=== PATIENT | female | born 1975 | race Caucasian/White ===

== ENCOUNTER → 2016-10-14 | Outpatient (CLI) | payer OTHER ==
--- NOTE | 2016-10-14 16:54 | REP ---
Left knee five views: Comparisons 06/24/2012. Mineralization is normal. There is no fracture or dislocation. There is no effusion. There are no calcifications or foreign bodies. There is minimal spurring at the medial joint margin at the patellofemoral joint margin compatible with minimal osteoarthritis. This has minimally progressed. Signed by Nikhil Fuentes MD 10/14/2016 04:46 P
== END ==
LOC: M RAD 14:45
PROVIDERS: ATTEND Physician Assistant Medical
DX: M17.12 Unilateral primary osteoarthritis, left knee (principal); M25.462 Effusion, left knee

== ENCOUNTER 2016-10-29 06:49 | Emergency (ER) | payer OTHER ==
[2016-10-29] MEDS ORDERED: SILVER SULFADIAZINE 1% CR 50 GM JAR As Ordered ONE (07:47)
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
== END 2016-10-29 08:05 | disposition home or self-care (01) ==
LOC: M ED 06:49
DX: T22.111A Burn of first degree of right forearm, initial encounter (principal); T54.1X1A Toxic effect of other corrosive organic compounds, accidental (unintentional), initial encounter; X58.XXXA Exposure to other specified factors, initial encounter; Y92.89 Other specified places as the place of occurrence of the external cause; Y93.89 Activity, other specified; Y99.0 Civilian activity done for income or pay; F32.9 Major depressive disorder, single episode, unspecified; F41.9 Anxiety disorder, unspecified; E03.9 Hypothyroidism, unspecified; Z79.899 Other long term (current) drug therapy

== ENCOUNTER 2016-11-03 17:09 | Emergency (ER) | payer OTHER ==
[2016-11-03] MEDS ORDERED: cloNIDine 0.2 MG TAB As Ordered ONE (19:10)
--- NOTE | 2016-11-03 21:20 | EDDOCDS ---
Physician Documentation [facility] Name: Bev Berg Age: 41 yrs Sex: Female : 1975 Arrival Date: 11/03/2016 Time: 17:09 Bed 14 Private MD: CRISTIAN GONSALEZ M Disposition: 11/03/16 21:10 Discharged to Home/Self Care. Impression: Encounter for examination of blood pressure with abnormal findings, Problems related to social environment. - Condition is Stable. - Medication Reconciliation, Local Pharmacy Hours form. - Follow up: Private Physician; When: Call to arrange an appointment; Reason: Recheck today's complaints. Follow up: Referral list, As provided by [facility]; When: Call to arrange an appointment; Reason: Recheck today's complaints. - Problem is an ongoing problem. - Symptoms have improved. Historical: - Allergies: No known drug Allergies; - Home Meds: 1. BuSpar 15 mg Oral tab 1 tab three times a day (Last dose: 11/02/2016) 2. Effexor 225mg Oral tab daily (Last dose: 11/02/2016) 3. levothyroxine 75 mcg Oral cap 1 cap once daily (Last dose: 11/03/2016 09:00) 4. hydrocodone-acetaminophen 5-325 mg Oral tab 1 tab every 4-6 hours as needed ran out last PM (Last dose: 11/02/2016) 5. ibuprofen 800 mg Oral tab 1 tab every 8 hours as needed (Last dose: 11/03/2016 11:00) - PMHx: Anxiety; Depression; Hypothyroidism; - PSHx: none; - Social history: Smoking status: Patient states was never smoker of tobacco. No barriers to communication noted, The patient speaks fluent Turkish. - Family history: Not pertinent. - : The pt / caregiver states he / she is not on anticoagulants. Home medication list is obtained from the patient. - Exposure Risk Screening:: None identified. 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 Vital Signs: 17:11 BP 212 / 103; Pulse 94; Resp 16; Temp 97.7(O); Pulse Ox 100% on R/A; Weight 127.01 kg / lr2 280.01 lbs (R); Height 5 ft. 2 in. (157.48 cm) (R); Pain 5/10; 17:18 BP 196 / 110 RA Sitting (man/lg); lr2 17:46 BP 193 / 93 RA (man/); hs1 18:30 BP 204 / 88 (auto/); mgs 18:31 Pulse 92 MON; Pulse Ox 100% ; mgs 18:50 BP 219 / 94 (auto/); mgs 18:50 Pulse 86 MON; Pulse Ox 98% ; mgs 19:10 BP 170 / 86 (auto/); mgs 19:10 Pulse 90 MON; Pulse Ox 99% ; mgs 19:30 BP 182 / 92 (auto/); mgs 19:30 Pulse 86 MON; Pulse Ox 99% ; mgs 19:50 BP 193 / 105 (auto/); mgs 19:50 Pulse 86 MON; Pulse Ox 99% ; mgs 20:10 BP 169 / 74 (auto/); mgs 20:10 Pulse 88 MON; Pulse Ox 95% ; mgs 20:30 BP 163 / 77 (auto/); mgs 20:30 Pulse 86 MON; Pulse Ox 97% ; mgs 20:50 BP 161 / 77 (auto/); mgs 20:50 Pulse 86 MON; Pulse Ox 95% ; mgs 21:13 BP 150 / 78; Pulse 87; Resp 18; Temp 98.8(O); Pulse Ox 98% on R/A; shona 17:11 Body Mass Index 51.21 (127.01 kg, 157.48 cm) lr2 MDM: 19:07 cloNIDine 0.2 mg PO once ordered. cs11 20:06 Consult PFS/PSA/Pile Driver ordered. cs11 20:59 Consult PFS/PSA/Pile Driver complete. ms 21:05 Financial registration complete. zo 21:08 [facility] Payment Agreement was scanned into [place] and attached to record. zo Administered Medications: 19:12 Drug: cloNIDine 0.2 mg [clonidine HCl 0.2 mg tablet (1 tabs)] Route: PO; mgs Signatures: Ivonne Cervantes RN RN kpj Charisma Lepe, PSA PSA ms Storm Linares Craig, DO DO cs11 Altaf Kern RN RN mgs The chart was reviewed and I authenticate all verbal orders and agree with the evaluation and treatment provided.Attachments: 21:08 [facility] Payment Agreement zo MTDD
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
--- NOTE | 2016-11-05 22:20 | EDDOCDS ---
Physician Documentation [facility] Name: Bev Berg Age: 41 yrs Sex: Female : 1975 Arrival Date: 11/03/2016 Time: 17:09 Bed 14 Private MD: CRISTIAN GONSALEZ M Disposition: 11/03/16 21:10 Discharged to Home/Self Care. Impression: Encounter for examination of blood pressure with abnormal findings, Problems related to social environment. - Condition is Stable. - Medication Reconciliation, Local Pharmacy Hours form. - Follow up: Private Physician; When: Call to arrange an appointment; Reason: Recheck today's complaints. Follow up: Referral list, As provided by PFS; When: Call to arrange an appointment; Reason: Recheck today's complaints. - Problem is an ongoing problem. - Symptoms have improved. Historical: - Allergies: No known drug Allergies; - Home Meds: 1. BuSpar 15 mg Oral tab 1 tab three times a day (Last dose: 11/02/2016) 2. Effexor 225mg Oral tab daily (Last dose: 11/02/2016) 3. levothyroxine 75 mcg Oral cap 1 cap once daily (Last dose: 11/03/2016 09:00) 4. hydrocodone-acetaminophen 5-325 mg Oral tab 1 tab every 4-6 hours as needed ran out last PM (Last dose: 11/02/2016) 5. ibuprofen 800 mg Oral tab 1 tab every 8 hours as needed (Last dose: 11/03/2016 11:00) - PMHx: Anxiety; Depression; Hypothyroidism; - PSHx: none; - Social history: Smoking status: Patient states was never smoker of tobacco. No barriers to communication noted, The patient speaks fluent Bolivian. - Family history: Not pertinent. - : The pt / caregiver states he / she is not on anticoagulants. Home medication list is obtained from the patient. - Exposure Risk Screening:: None identified. 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 2 in. (157.48 cm) (R); Pain 5/10; 17:18 BP 196 / 110 RA Sitting (man/lg); lr2 17:46 BP 193 / 93 RA (man/); hs1 18:30 BP 204 / 88 (auto/); mgs 18:31 Pulse 92 MON; Pulse Ox 100% ; mgs 18:50 BP 219 / 94 (auto/); mgs 18:50 Pulse 86 MON; Pulse Ox 98% ; mgs 19:10 BP 170 / 86 (auto/); mgs 19:10 Pulse 90 MON; Pulse Ox 99% ; mgs 19:30 BP 182 / 92 (auto/); mgs 19:30 Pulse 86 MON; Pulse Ox 99% ; mgs 19:50 BP 193 / 105 (auto/); mgs 19:50 Pulse 86 MON; Pulse Ox 99% ; mgs 20:10 BP 169 / 74 (auto/); mgs 20:10 Pulse 88 MON; Pulse Ox 95% ; mgs 20:30 BP 163 / 77 (auto/); mgs 20:30 Pulse 86 MON; Pulse Ox 97% ; mgs 20:50 BP 161 / 77 (auto/); mgs 20:50 Pulse 86 MON; Pulse Ox 95% ; mgs 21:13 BP 150 / 78; Pulse 87; Resp 18; Temp 98.8(O); Pulse Ox 98% on R/A; shona 17:11 Body Mass Index 51.21 (127.01 kg, 157.48 cm) lr2 MDM: 19:07 cloNIDine 0.2 mg PO once ordered. cs11 20:06 Consult PFS/PSA/Strategic Communications Manager ordered. cs11 20:59 Consult PFS/PSA/Strategic Communications Manager complete. ms 21:05 Financial registration complete. zo 21:08 [facility] Payment Agreement was scanned into [employer] and attached to record. zo Administered Medications: 19:12 Drug: cloNIDine 0.2 mg [clonidine HCl 0.2 mg tablet (1 tabs)] Route: PO; mgs Signatures: Ivonne Cervantes RN RN kpj Charisma Lepe, PSA PSA ms Storm Linares Craig, DO DO cs11 Altaf Kern RN RN mgs The chart was reviewed and I authenticate all verbal orders and agree with the evaluation and treatment provided.Attachments: 21:08 [facility] Payment Agreement zo Chart Complete MTDD
--- NOTE | 2016-11-05 22:20 | EDDOCDS ---
Physician Documentation [facility] Name: Bev Berg Age: 41 yrs Sex: Female : 1975 Arrival Date: 11/03/2016 Time: 17:09 Bed 14 Private MD: CRISTIAN GONSALEZ M Disposition: 11/03/16 21:10 Discharged to Home/Self Care. Impression: Encounter for examination of blood pressure with abnormal findings, Problems related to social environment. - Condition is Stable. - Medication Reconciliation, Local Pharmacy Hours form. - Follow up: Private Physician; When: Call to arrange an appointment; Reason: Recheck today's complaints. Follow up: Referral list, As provided by PFS; When: Call to arrange an appointment; Reason: Recheck today's complaints. - Problem is an ongoing problem. - Symptoms have improved. Historical: - Allergies: No known drug Allergies; - Home Meds: 1. BuSpar 15 mg Oral tab 1 tab three times a day (Last dose: 11/02/2016) 2. Effexor 225mg Oral tab daily (Last dose: 11/02/2016) 3. levothyroxine 75 mcg Oral cap 1 cap once daily (Last dose: 11/03/2016 09:00) 4. hydrocodone-acetaminophen 5-325 mg Oral tab 1 tab every 4-6 hours as needed ran out last PM (Last dose: 11/02/2016) 5. ibuprofen 800 mg Oral tab 1 tab every 8 hours as needed (Last dose: 11/03/2016 11:00) - PMHx: Anxiety; Depression; Hypothyroidism; - PSHx: none; - Social history: Smoking status: Patient states was never smoker of tobacco. No barriers to communication noted, The patient speaks fluent Latvian. - Family history: Not pertinent. - : The pt / caregiver states he / she is not on anticoagulants. Home medication list is obtained from the patient. - Exposure Risk Screening:: None identified. 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 2 in. (157.48 cm) (R); Pain 5/10; 17:18 BP 196 / 110 RA Sitting (man/lg); lr2 17:46 BP 193 / 93 RA (man/); hs1 18:30 BP 204 / 88 (auto/); mgs 18:31 Pulse 92 MON; Pulse Ox 100% ; mgs 18:50 BP 219 / 94 (auto/); mgs 18:50 Pulse 86 MON; Pulse Ox 98% ; mgs 19:10 BP 170 / 86 (auto/); mgs 19:10 Pulse 90 MON; Pulse Ox 99% ; mgs 19:30 BP 182 / 92 (auto/); mgs 19:30 Pulse 86 MON; Pulse Ox 99% ; mgs 19:50 BP 193 / 105 (auto/); mgs 19:50 Pulse 86 MON; Pulse Ox 99% ; mgs 20:10 BP 169 / 74 (auto/); mgs 20:10 Pulse 88 MON; Pulse Ox 95% ; mgs 20:30 BP 163 / 77 (auto/); mgs 20:30 Pulse 86 MON; Pulse Ox 97% ; mgs 20:50 BP 161 / 77 (auto/); mgs 20:50 Pulse 86 MON; Pulse Ox 95% ; mgs 21:13 BP 150 / 78; Pulse 87; Resp 18; Temp 98.8(O); Pulse Ox 98% on R/A; shona 17:11 Body Mass Index 51.21 (127.01 kg, 157.48 cm) lr2 MDM: 19:07 cloNIDine 0.2 mg PO once ordered. cs11 20:06 Consult PFS/PSA/Carpet Winder ordered. cs11 20:59 Consult PFS/PSA/Carpet Winder complete. ms 21:05 Financial registration complete. zo 21:08 [facility] Payment Agreement was scanned into [employer] and attached to record. zo Administered Medications: 19:12 Drug: cloNIDine 0.2 mg [clonidine HCl 0.2 mg tablet (1 tabs)] Route: PO; mgs Signatures: Ivonne Cervantes RN RN kpj Charisma Lepe, PSA PSA ms Storm Linares Craig, DO DO cs11 Altaf Kern RN RN mgs The chart was reviewed and I authenticate all verbal orders and agree with the evaluation and treatment provided.Attachments: 21:08 [facility] Payment Agreement zo Chart Complete MTDD
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
== END 2016-11-03 21:19 | disposition home or self-care (01) ==
LOC: M ED 17:09
DX: I10 Essential (primary) hypertension (principal); Z60.9 Problem related to social environment, unspecified; F41.9 Anxiety disorder, unspecified; F32.9 Major depressive disorder, single episode, unspecified; E03.9 Hypothyroidism, unspecified; Z79.899 Other long term (current) drug therapy

== ENCOUNTER 2017-04-06 19:23 | Emergency (ER) | payer OTHER ==
[~2017-04-06] VITALS: Ht 157.5 cm; Wt 128.3 kg
[2017-04-06 19:25] VITALS: BP 164/106
[2017-04-06] MEDS ORDERED: LEVO75TA4 (19:30)
[2017-04-06] MEDS ORDERED: LEXA1TAB2 PO (19:30)
[2017-04-06] MEDS ORDERED: BUSP15TA47 (19:30)
[2017-04-06] MEDS ORDERED: TYLE325C PO (19:30)
[2017-04-06] MEDS ORDERED: NAPR250T4 PO (19:30)
[2017-04-06] MEDS ORDERED: IBUP-1114 PO (19:30)
[2017-04-06] MEDS ORDERED: ROBA500T PO (20:33)
[2017-04-06] MEDS ORDERED: IBUP80TA PO (20:33)
[2017-04-06] MEDS ORDERED: IBUPROFEN 800 MG TAB PO ONE (20:45)
[2017-04-06] MEDS ORDERED: METHOCARBAMOL 500 MG TAB PO ONE (20:45)
== END 2017-04-06 20:47 | disposition home or self-care (01) ==
LOC: M ED 19:23
DX: S39.012A Strain of muscle, fascia and tendon of lower back, initial encounter (principal); X58.XXXA Exposure to other specified factors, initial encounter; Y92.099 Unspecified place in other non-institutional residence as the place of occurrence of the external cause; Y93.9 Activity, unspecified; Y99.9 Unspecified external cause status; F41.9 Anxiety disorder, unspecified; E03.9 Hypothyroidism, unspecified; Z79.899 Other long term (current) drug therapy

== ENCOUNTER → 2017-04-21 | Outpatient (REF) | payer OTHER ==
[~2017-04-21] MED LIST: BUSP15TA47; IBUP-1114 PO; IBUP80TA PO; LEVO75TA4; LEXA1TAB2 PO; NAPR250T4 PO; ROBA500T PO; TYLE325C PO
[2017-04-21 19:37] LABS: BASO % 0.5 % (0.0-1.0); EOS # 0.2 K/mm3 (0.0-0.50); EOS % 1.5 % (0.0-3.0); LYMPH # 2.3 K/mm3 (1.5-4.5); LYMPH % 21.2 % (24.0-44.0); MEAN CORPUSCULAR HEMOGLOBIN 28.6 pg (27.0-33.0); MEAN CORPUSCULAR HGB CONC 33.7 g/dl (32.0-36.5); MEAN CORPUSCULAR VOLUME 84.9 fl (80.0-96.0); MONO # 0.4 K/mm3 (0.0-0.8); MONO % 4.1 % (0.0-5.0); NEUTROPHILS # 7.1 K/mm3 (1.8-7.7); NEUTROPHILS % 71.2 % (36.0-66.0); RED CELL DISTRIBUTION WIDTH 14.6 % (11.5-14.5)
[2017-04-21 19:56] LABS: VITAMIN B12 LEVEL 309 PG/ML (247-911)
[2017-04-21 20:15] LABS: ALBUMIN 3.7 GM/DL (3.2-5.2); ALBUMIN/GLOBULIN RATIO 1.09 (1.00-1.93); ALKALINE PHOSPHATASE 83 U/L (45-117); ALT/SGPT 22 U/L (12-78); ANION GAP 9 MEQ/L (8-16); AST/SGOT 17 U/L (15-37); BILIRUBIN,TOTAL 0.3 MG/DL (0.2-1.0); BLOOD UREA NITROGEN 12 MG/DL (7-18); CALCIUM LEVEL 8.6 MG/DL (8.5-10.1); CARBON DIOXIDE LEVEL 27 MEQ/L (21-32); CHLORIDE LEVEL 107 MEQ/L (98-107); CHOLESTEROL LEVEL 161 MG/DL (<200); CREATININE FOR GFR 0.79 MG/DL (0.55-1.02); FREE T4 0.95 NG/DL (0.76-1.46); GLOMERULAR FILTRATION RATE > 60.0 (>58); GLUCOSE, FASTING 85 MG/DL (70-105); SODIUM LEVEL 143 MEQ/L (136-145); TOTAL PROTEIN 7.1 GM/DL (6.4-8.2); TRIGLYCERIDES LEVEL 100 MG/DL (<150)
== END ==
LOC: M LABSMT 17:17
PROVIDERS: ATTEND Nurse Practitioner Psychiatric/Mental Health
DX: F33.1 Major depressive disorder, recurrent, moderate (principal)

== ENCOUNTER 2018-04-18 18:52 | Emergency (ER) | payer OTHER ==
[2018-04-18] MEDS: NORCO 5/325MG TABLET (BULK FOR ED) PO (21:27)
== END 2018-04-18 21:30 | disposition home or self-care (01) ==
LOC: M ED 18:52
DX: S90.32XA Contusion of left foot, initial encounter (principal); W20.8XXA Other cause of strike by thrown, projected or falling object, initial encounter; Y92.019 Unspecified place in single-family (private) house as the place of occurrence of the external cause; E03.9 Hypothyroidism, unspecified; F41.9 Anxiety disorder, unspecified
CPT/HCPCS: 73630

== ENCOUNTER → 2018-05-21 | Outpatient (CLI) | payer OTHER ==
[2018-05-24 10:26] LABS: RUBELLA IgG QUALITATIVE IMMUNE (IMMUNE)
== END ==
LOC: M WUC 13:47
DX: Z02.1 Encounter for pre-employment examination (principal)
CPT/HCPCS: 86762

== ENCOUNTER → 2019-01-04 | Outpatient (REF) | payer OTHER ==
[~2019-01-04] MED LIST changes: +REXU1TAB3 PO; +VYVA40CA3 PO
[2019-01-04 21:46] LABS: AMORPHOUS SEDIMENT SMALL (NEGATIVE); APPEARANCE, URINE CLOUDY (CLEAR); BACTERIA, URINE AUTO NEGATIVE (NEGATIVE); BILIRUBIN, URINE AUTO NEGATIVE (NEGATIVE); BLOOD, URINE BLOOD 2+ (NEGATIVE); COLOR, URINE YELLOW (YELLOW); GLUCOSE, URINE (UA) AUTO NEGATIVE (NEGATIVE); KETONE, URINE AUTO TRACE mg/dL (NEGATIVE); LEUKOCYTE ESTERASE, URINE AUTO 3+ (NEGATIVE); MUCUS, URINE SMALL (NEGATIVE); NITRITE, URINE AUTO POSITIVE (NEGATIVE); PROTEIN, URINE AUTO 1+ mg/dL (NEGATIVE); RBC, URINE AUTO 36 /HPF (0-3); SPECIFIC GRAVITY URINE AUTO 1.019 (1.002-1.035); SQUAMOUS EPITHELIAL CELL UR AU 8 /HPF (0-6); TRANSITIONAL EPITHELIAL AUTO 1 /HPF; URIC ACID CRYSTALS SMALL; UROBILINOGEN, URINE AUTO 0.2 mg/dL (0.0-2.0); WBC, URINE AUTO TNTC /HPF (0-3)
== END ==
LOC: M LAB REF 09:32
PROVIDERS: ATTEND Physician Assistant Medical
DX: N39.0 Urinary tract infection, site not specified (principal)

== ENCOUNTER → 2019-01-12 | Outpatient (REF) | payer OTHER ==
[2019-01-12 22:18] LABS: APPEARANCE, URINE TURBID (CLEAR); BACTERIA, URINE AUTO 3+ (NEGATIVE); BILIRUBIN, URINE AUTO NEGATIVE (NEGATIVE); BLOOD, URINE BLOOD 2+ (NEGATIVE); COLOR, URINE AMBER (YELLOW); GLUCOSE, URINE (UA) AUTO NEGATIVE (NEGATIVE); KETONE, URINE AUTO NEGATIVE (NEGATIVE); LEUKOCYTE ESTERASE, URINE AUTO 3+ (NEGATIVE); MUCUS, URINE SMALL (NEGATIVE); NITRITE, URINE AUTO NEGATIVE (NEGATIVE); PROTEIN, URINE AUTO 2+ mg/dL (NEGATIVE); RBC, URINE AUTO TNTC /HPF (0-3); SPECIFIC GRAVITY URINE AUTO 1.018 (1.002-1.035); SQUAMOUS EPITHELIAL CELL UR AU 2 /HPF (0-6); UROBILINOGEN, URINE AUTO 0.2 mg/dL (0.0-2.0); WBC, URINE AUTO TNTC /HPF (0-3)
== END ==
LOC: M LAB REF 10:22
PROVIDERS: ATTEND Physician Assistant
DX: N39.0 Urinary tract infection, site not specified (principal)

== ENCOUNTER 2019-09-25 17:48 | Emergency (ER) | payer OTHER ==
[~2019-09-25] VITALS: Ht 157.5 cm; Wt 146.4 kg
[2019-09-25 18:50] LABS: INFLUENZA A AMPLIFICATION NEGATIVE (NEGATIVE); INFLUENZA B AMPLIFICATION NEGATIVE (NEGATIVE)
[2019-09-25 19:14] LABS: APPEARANCE, URINE HAZY (CLEAR); BACTERIA, URINE AUTO NEGATIVE (NEGATIVE); BILIRUBIN, URINE AUTO NEGATIVE (NEGATIVE); BLOOD, URINE BLOOD NEGATIVE (NEGATIVE); COLOR, URINE YELLOW (YELLOW); GLUCOSE, URINE (UA) AUTO NEGATIVE (NEGATIVE); KETONE, URINE AUTO NEGATIVE (NEGATIVE); LEUKOCYTE ESTERASE, URINE AUTO NEGATIVE (NEGATIVE); NITRITE, URINE AUTO NEGATIVE (NEGATIVE); PROTEIN, URINE AUTO NEGATIVE (NEGATIVE); RBC, URINE AUTO 3 /HPF (0-3); SPECIFIC GRAVITY URINE AUTO 1.017 (1.002-1.035); SQUAMOUS EPITHELIAL CELL UR AU 4 /HPF (0-6); UROBILINOGEN, URINE AUTO 0.2 mg/dL (0.0-2.0); WBC, URINE AUTO 1 /HPF (0-3)
[2019-09-25] MEDS ORDERED: ALBUTEROL SULFATE 2.5 MG/0.5 ML INH NEB SOLN NEB ONE (21:30)
[2019-09-25] MEDS ORDERED: BENZ200C70 PO (22:22)
[2019-09-25] MEDS ORDERED: PROAAER10 INH (22:22)
[2019-09-25 22:27] VITALS: BP 145/86
--- NOTE | 2019-09-26 01:41 | REP ---
Clinical: Cough and shortness of breath . Comparison: 06/17/2015 . Technique: PA and lateral. Findings: The mediastinum and cardiac silhouette are normal. The lung sampson are clear and without acute consolidation, effusion, or pneumothorax. The skeletal structures are intact and normal. Impression: 1. No acute cardiopulmonary process. Electronically Signed by Neftali Aguilar MD 09/26/2019 01:32 A
== END 2019-09-25 22:27 | disposition home or self-care (01) ==
LOC: M ED 17:48
DX: J06.9 Acute upper respiratory infection, unspecified (principal); Z79.51 Long term (current) use of inhaled steroids; Z79.899 Other long term (current) drug therapy

== ENCOUNTER 2019-10-06 16:01 | Emergency (ER) | payer OTHER ==
[~2019-10-06] VITALS: Ht 157.5 cm; Wt 143.0 kg
[~2019-10-06 16:01] MED LIST changes: +BENZ200C70 PO; +PROAAER10 INH
[2019-10-06] MEDS ORDERED: AMOX875T2 (16:09)
[2019-10-06] MEDS ORDERED: ONDANSETRON 4 MG ORAL DISINTEGRATING TAB (Q0162 PER 1MG) PO ONE (18:30)
[2019-10-06] MEDS ORDERED: DICYCLOMINE 10 MG CAP PO ONE (18:30)
[2019-10-06 19:12] LABS: BASO # 0.1 10^3/uL (0.0-0.2); BASO % 0.4 % (0.0-1.0); EOS # 0.1 10^3/uL (0.0-0.5); EOS % 0.5 % (0.0-3.0); HEMATOCRIT 44.9 % (36.0-47.0); HEMOGLOBIN 14.2 g/dl (12.0-15.5); LYMPH # 2.1 10^3/uL (1.5-5.0); LYMPH % 16.8 % (24.0-44.0); MEAN CORPUSCULAR HEMOGLOBIN 28.8 pg (27.0-33.0); MEAN CORPUSCULAR HGB CONC 31.6 g/dl (32.0-36.5); MEAN CORPUSCULAR VOLUME 91.1 fl (80.0-96.0); MONO # 0.5 10^3/uL (0.0-0.8); MONO % 4.1 % (0.0-5.0); NEUTROPHILS # 9.9 10^3/uL (1.5-8.5); NEUTROPHILS % 77.6 % (36.0-66.0); PLATELET COUNT, AUTOMATED 223 10^3/uL (150-450); RED BLOOD COUNT 4.93 10^6/uL (4.00-5.40); WHITE BLOOD COUNT 12.7 10^3/uL (4.0-10.0)
[2019-10-06 19:26] LABS: BLOOD UREA NITROGEN 13 MG/DL (7-18); CALCIUM LEVEL 9.5 MG/DL (8.5-10.1); CARBON DIOXIDE LEVEL 29 MEQ/L (21-32); CHLORIDE LEVEL 104 MEQ/L (98-107); CREATININE FOR GFR 0.81 MG/DL (0.55-1.30); GLOMERULAR FILTRATION RATE > 60.0 (>58); GLUCOSE, FASTING 104 MG/DL (70-100); SODIUM LEVEL 139 MEQ/L (136-145)
--- NOTE | 2019-10-06 19:52 | REP ---
KUB ABDOMEN AND PELVIS: KUB film of the abdomen and pelvis is performed. No bowel obstruction is seen. There are no dilated small bowel loops. There appears to be a tiny phlebolith in the left pelvis. There is slight curvature of the thoracolumbar spine convex to the right. IMPRESSION: Unremarkable KUB exam. Electronically Signed by Nikhil Mari MD 10/07/2019 12:49 P
[2019-10-06] MEDS ORDERED: DICY10CA13 PO (20:07)
[2019-10-06] MEDS ORDERED: ONDA4TAB6 PO (20:07)
[2019-10-06 20:32] VITALS: BP 167/78
== END 2019-10-06 20:33 | disposition home or self-care (01) ==
LOC: M ED 16:01
DX: R10.84 Generalized abdominal pain (principal); R11.0 Nausea; R19.7 Diarrhea, unspecified; Z79.51 Long term (current) use of inhaled steroids; Z79.811 Long term (current) use of aromatase inhibitors; Z79.899 Other long term (current) drug therapy
CPT/HCPCS: 36415; 74018; 80048; 85025; 99283; Q0162

== ENCOUNTER → 2020-02-20 | Outpatient (REF) | payer OTHER, MEDICAID ==
[~2020-02-20] MED LIST changes: +AMOX875T2; +DICY10CA13 PO; +EUTH100T; +LEVS0.124 SL; +NORV5TAB PO; +ONDA4TAB6 PO
[2020-02-20 17:47] LABS: ALBUMIN 3.6 GM/DL (3.2-5.2); ALT/SGPT 33 U/L (12-78); BILIRUBIN,TOTAL 0.6 MG/DL (0.2-1.0); BLOOD UREA NITROGEN 10 MG/DL (7-18); CALCIUM LEVEL 8.5 MG/DL (8.5-10.1); CARBON DIOXIDE LEVEL 26 MEQ/L (21-32); CHLORIDE LEVEL 106 MEQ/L (98-107); CHOLESTEROL LEVEL 161 MG/DL (<200); CHOLESTEROL RISK RATIO 3.659 (<5); CREATININE FOR GFR 0.72 MG/DL (0.55-1.30); GLOMERULAR FILTRATION RATE > 60.0 (>58); GLUCOSE, FASTING 121 MG/DL (70-100); HDL CHOLESTEROL 44 MG/DL (>40); LDL CHOLESTEROL 95 MG/DL (<100); NON-HDL-C 117 MG/DL; POTASSIUM SERUM 4.3 MEQ/L (3.5-5.1); SODIUM LEVEL 139 MEQ/L (136-145); TOTAL PROTEIN 7.5 GM/DL (6.4-8.2); TRIGLYCERIDES LEVEL 109 MG/DL (<150)
== END ==
LOC: M LAB REF 16:24
PROVIDERS: ATTEND Family Medicine Addiction Medicine
DX: E03.9 Hypothyroidism, unspecified (principal)

== ENCOUNTER 2020-03-07 22:23 | Emergency (ER) | payer MEDICAID, OTHER ==
[~2020-03-07] VITALS: Ht 157.5 cm; Wt 136.4 kg
[~2020-03-07 22:23] MED LIST changes: -EUTH100T; -LEVS0.124 SL; -NORV5TAB PO
[2020-03-07] MEDS ORDERED: EUTH100T (22:33)
[2020-03-07] MEDS ORDERED: GI COCKTAIL 50ML BTL(HYOSCYAMINE/MAALOX/LIDOCAINE VISCOUS)(1:3:1) PO ONE (22:45)
[2020-03-07 22:55] LABS: BASO % 0.2 % (0.0-1.0); EOS # 0.2 10^3/uL (0.0-0.5); EOS % 1.3 % (0.0-3.0); HEMATOCRIT 40.2 % (36.0-47.0); HEMOGLOBIN 13.1 g/dl (12.0-15.5); LYMPH % 23.9 % (24.0-44.0); MEAN CORPUSCULAR HEMOGLOBIN 29.2 pg (27.0-33.0); MEAN CORPUSCULAR HGB CONC 32.6 g/dl (32.0-36.5); MEAN CORPUSCULAR VOLUME 89.5 fl (80.0-96.0); MONO # 0.7 10^3/uL (0.0-0.8); MONO % 5.4 % (0.0-5.0); NEUTROPHILS # 8.5 10^3/uL (1.5-8.5); NEUTROPHILS % 68.3 % (36.0-66.0); PLATELET COUNT, AUTOMATED 224 10^3/uL (150-450); RED BLOOD COUNT 4.49 10^6/uL (4.00-5.40); WHITE BLOOD COUNT 12.5 10^3/uL (4.0-10.0)
[2020-03-07 23:24] LABS: ALBUMIN 3.8 GM/DL (3.2-5.2); ALT/SGPT 24 U/L (12-78); BILIRUBIN,DIRECT < 0.1 MG/DL (0.0-0.2); BILIRUBIN,TOTAL 0.4 MG/DL (0.2-1.0); BLOOD UREA NITROGEN 13 MG/DL (7-18); CALCIUM LEVEL 8.9 MG/DL (8.5-10.1); CARBON DIOXIDE LEVEL 27 MEQ/L (21-32); CHLORIDE LEVEL 106 MEQ/L (98-107); CREATININE FOR GFR 0.83 MG/DL (0.55-1.30); GLOMERULAR FILTRATION RATE > 60.0 (>58); GLUCOSE, FASTING 103 MG/DL (70-100); LIPASE 71 U/L (73-393); SODIUM LEVEL 140 MEQ/L (136-145); TOTAL PROTEIN 7.7 GM/DL (6.4-8.2)
[2020-03-07 23:43] LABS: HCG, SERUM QUALITATIVE NEGATIVE (NEGATIVE)
--- NOTE | 2020-03-07 23:51 | REPVR ---
PROCEDURE INFORMATION: Exam: US Abdomen, Limited; Right Upper Quadrant Exam date and time: 03/07/2020 11:24 PM Age: 44 years old Clinical indication: Abdominal pain; Acute; Additional info: Ruq abd pain TECHNIQUE: Imaging protocol: US abdomen. Real time ultrasound with image documentation. Limited exam focused on the right upper quadrant. COMPARISON: OR Abdomen,Flat Plate KUB 10/06/2019 6:53 PM FINDINGS: Liver: Fatty infiltration of the liver. Gallbladder: Multiple gallstones layering in the gallbladder. No gallbladder wall thickening. Common bile duct: Normal. No stones. No dilation. CBD measures 4.9 mm in diameter. Pancreas: Pancreas is obscured by overlying bowel gas. Right kidney: Right kidney measures 11.1 cm in length. No right hydronephrosis. No masses. IMPRESSION: 1. Cholelithiasis without evidence of acute cholecystitis on ultrasound. 2. Fatty infiltration of the liver. Electronically signed by: Praveena Tsang On 03/07/2020 23:50:36 PM
[2020-03-08 00:15] VITALS: BP 215/107
[2020-03-08] MEDS ORDERED: LEVS0.124 SL (00:52)
[2020-03-08] MEDS ORDERED: NORV5TAB PO (00:52)
[2020-03-08] MEDS ORDERED: amLODIPine 5 MG TAB PO ONE (01:00)
== END 2020-03-08 01:24 | disposition home or self-care (01) ==
LOC: M ED 22:23
DX: K80.42 Calculus of bile duct with acute cholecystitis without obstruction (principal); K76.0 Fatty (change of) liver, not elsewhere classified; F32.9 Major depressive disorder, single episode, unspecified; F41.9 Anxiety disorder, unspecified; I10 Essential (primary) hypertension; Z79.899 Other long term (current) drug therapy

== ENCOUNTER 2021-01-23 17:16 | Emergency (ER) | payer OTHER ==
[~2021-01-23] VITALS: Ht 157.5 cm; Wt 136.4 kg
[~2021-01-23 17:16] MED LIST changes: +EUTH100T; +LEVS0.124 SL; +NAPR-849 PO; -NAPR250T4 PO; +NORV5TAB PO
[2021-01-23] MEDS ORDERED: AMLO1TAB25 (17:25)
[2021-01-23] MEDS ORDERED: LEXA1TAB2 PO (21:11)
[2021-01-23] MEDS ORDERED: REXU1TAB3 PO (21:11)
[2021-01-23 21:31] VITALS: BP 175/84
== END 2021-01-23 21:33 | disposition home or self-care (01) ==
LOC: M ED 17:16
DX: F33.9 Major depressive disorder, recurrent, unspecified (principal); I10 Essential (primary) hypertension; Z79.899 Other long term (current) drug therapy

== ENCOUNTER → 2021-04-09 | Outpatient (REF) | payer OTHER ==
[~2021-04-09] MED LIST changes: +AMLO1TAB25
[2021-04-09 16:59] LABS: APPEARANCE, URINE CLOUDY (CLEAR); BACTERIA, URINE AUTO 1+ (NEGATIVE); BILIRUBIN, URINE AUTO NEGATIVE (NEGATIVE); BLOOD, URINE BLOOD NEGATIVE (NEGATIVE); COLOR, URINE YELLOW (YELLOW); GLUCOSE, URINE (UA) AUTO NEGATIVE (NEGATIVE); KETONE, URINE AUTO NEGATIVE (NEGATIVE); LEUKOCYTE ESTERASE, URINE AUTO 1+ (NEGATIVE); MUCUS, URINE SMALL (NEGATIVE); NITRITE, URINE AUTO POSITIVE (NEGATIVE); PROTEIN, URINE AUTO NEGATIVE (NEGATIVE); RBC, URINE AUTO 1 /HPF (0-3); SPECIFIC GRAVITY URINE AUTO 1.018 (1.002-1.035); SQUAMOUS EPITHELIAL CELL UR AU 27 /HPF (0-6); UROBILINOGEN, URINE AUTO 0.2 mg/dL (0.0-2.0); WBC, URINE AUTO 6 /HPF (0-3)
== END ==
LOC: M LAB REF 15:11 → EEVIPCON 15:11
PROVIDERS: ATTEND Physician Assistant
DX: N39.0 Urinary tract infection, site not specified (principal)